=== PATIENT | male | born 1965 | race African-American/Black ===

== ENCOUNTER 2019-02-02 23:35 | Observation (INO) | payer MEDICAID ==
[~2019-02-02] VITALS: Ht 172.7 cm; Wt 73.2 kg
--- NOTE | ~2019-02-02 | HEMODYNAMI ---
PATIENT:GISSELLE BAKER MEDICAL RECORD: [id number] : 61 LOCATION:[facility].2106 ADMISSION DATE: 02/03/19 Generatedon:02/03/201916:51 Patient name: GISSELLE BAKER Patient #: [id number] SSN: : 1965 Date of study: 02/03/2019 Page: Of Hemodynamic Procedure Report Patient Data Patient Demographics Procedure consent was obtained First Name: GISSELLE Gender: Male Last Name: OLIVIA : 1965 Patient #: [id number] Age: 53 year(s) Race: Black Additional ID: [id number] Contact details [address]: [address] [place] [address] State: [place] City: [place] Zip code: [address] Past Medical History Allergies: No known allergies Admission Admission Data Admission Date: 02/03/2019 Admission Time: 1:01 Room #: 2106 Procedure Procedure Types Cath Procedure Diagnostic Procedure LHC LHC w/Coronaries Sedation Charges Moderate Sedation up to 15 minutes PCI Procedure PTCA PTCA Initial Procedure Description Procedure Date Procedure Date: 02/03/2019 Procedure Start Time: 16:21 Procedure End Time: 16:50 Procedure Staff Name Function Dandy Silva MD Performing Physician Soniya Verdin RT Monitor Finn Garvin RN Nurse Farshad Flores RT Scrub Procedure Data Cath Procedure Fluoroscopy Diagnostic fluoroscopy Total fluoroscopy Time: 8.4 time: 8.4 min min Diagnostic fluoroscopy Total fluoroscopy dose: 575 dose: 575 mGy mGy Contrast Material Contrast Material Type Amount (ml) Isovue 300 99 Entry Location Entry Primary Successful Side Size Upsize Upsize Entry Closure Succes sful Closure Location (Fr) 1 (Fr) 2 (Fr) Remarks Device Remarks Femoral Right 5 Fr 6 Fr Exoseal artery Short Estimated blood loss: 10 ml Diagnostic catheters Device Type Used For End Catheter Placement MULTIPACK JL 4.0 5Fr Left Coronary catheter Angiography MULTIPACK 3DRC 5Fr Right Coronary catheter Angiography DIAGNOSTIC IM 5Fr Internal mammary catheter ([id number]) arteriography MULTIPACK Pigtail 5 Fr LV Angiography catheter Procedure Complications No complications Procedure Medications Medication Administration Route Dosage Oxygen etCO2 Nasal cannula 2 l/min Lidocaine 2% added to field 20 Heparin Flush Bag added to field 2 bags (1000units/500ml NS) 0.9% NaCl I.V. 100 ml/hr Versed I.V. 1 mg Fentanyl I.V. 50 mcg Versed I.V. 1 mg Fentanyl I.V. 50 mcg Heparin Bolus I.V. 7500 units Plavix P.O. 300 mg Hemodynamics Rest Heart Rate: 75 (bpm) Pressure Samples Time Site Value (mmHg) Purpose Heart Use Rate(bpm) 16:30 LV 125/-1,15 EDP 81 Gradients Valve Time Site Site Mean SEP/DFP Peak To Heart Use 1 2 (mmHg) (sec/min) Peak Rate (mmHg) (bpm) Aortic 16:31 LV AO 78 Snapshots Pre Cath Intra NCS Post Cath Vital Signs Time Heart Resp SPO2 etCO2 NIBP (mmHg) Rhythm Pain Sedation Rate (ipm) (%) (mmHg) Status Level (bpm) 16:10:09 76 14 96 39.8 135/85(103) NSR 0 (11) 10(A) , No pain 16:14:29 77 12 100 39.8 130/84(111) NSR 0 (11) 10(A) , No pain 16:18:54 76 14 99 40.6 123/75(99) NSR 0 (11) 9(A) , No pain 16:23:14 77 15 98 42.8 120/80(96) NSR 0 (11) 9(A) , No pain 16:27:28 80 16 98 44.3 117/81(100) NSR 0 (11) 9(A) , No pain 16:31:46 77 17 97 44.3 120/76(96) NSR 0 (11) 9(A) , No pain 16:36:08 81 14 98 35.3 116/72(93) NSR 0 (11) 9(A) , No pain 16:40:28 79 16 98 39 119/72(94) NSR 0 (11) 9(A) , No pain 16:44:48 82 14 99 33.8 106/78(96) NSR 0 (11) 10(A) , No pain 16:49:04 78 15 98 43.6 123/74(101) NSR 0 (11) 10(A) , No pain Medications Time Medication Route Dose Verified Delivered Reason Notes Effectiveness by by 16:08:20 Oxygen etCO2 2 Dandy Buffie used for Nasal l/min Kofi Garvin RN procedure cannula 16:08:28 Lidocaine 2% added 20ml Dandy Dandy for local to vial Kofi Silva MD anesthetic field 16:08:34 Heparin Flush added 2 Dandy Dandy used for Bag to bags Kofi Silva MD procedure (1000units/500ml field NS) 16:08:44 0.9% NaCl I.V. 100 Dandy Buffie Per physician ml/hr Kofi Garvin RN 16:16:17 Versed I.V. 1 mg Dandy Buffie for sedation Kofi Garvin RN 16:16:23 Fentanyl I.V. 50 Dandy Buffie for sedation mcg Kofi Garvin RN 16:26:37 Versed I.V. 1 mg Dandy Buffie for sedation Kofi Garvin RN 16:26:41 Fentanyl I.V. 50 Dandy Buffie for sedation mcg Kofi Garvin RN 16:34:40 Heparin Bolus I.V. 7500 Dandy Buffie for verif ied units Kofi Garvin RN anticoagulation with dr silva 16:47:12 Plavix P.O. 300 Dandy Buffie for mg Kofi Garvin RN antiplatelet therapy Procedure Log Time Note 15:51:18 Time tracking: Regular hours (M-F 7:00 - 5:00) 15:51:23 Plan of Care:Hemodynamics will remain stable., Cardiac rhythm will remain stable., Comfort level will be maintained., Respiratory function will remain adequate., Patient/ family verbilizes understanding of procedure., Procedure tolerated without complication., Recovers from procedure without complications.. 15:51:27 Farshad Flores RT(R) sent for patient. Start room use. 16:01:11 Patient received from PCU to CCL 3 Alert and oriented. Tansferred to table in Supine position. 16:01:12 Warm blankets applied, and pérez hugger turned on for patient comfort. 16:01:12 Correct patient and procedure confirmed by team. 16:01:14 Signed procedure consent form obtained from patient. 16:01:15 ECG and BP/O2 sat monitors applied to patient. 16:01:31 Full Disclosure recording started 16:08:20 Oxygen 2 l/min etCO2 Nasal cannula was administered by Finn Garvin RN; used for procedure; 16:08:28 Lidocaine 2% 20ml vial added to field was administered by Dandy Silva MD; for local anesthetic; 16:08:34 Heparin Flush Bag (1000units/500ml NS) 2 bags added to field was administered by Dandy Silva MD; used for procedure; 16:08:44 0.9% NaCl 100 ml/hr I.V. was administered by Finn Garvin RN; Per physician; 16:08:50 Vital chart was started 16:11:26 Baseline sample Acquired. 16:11:29 Rhythm: sinus rhythm 16:11:47 H&P Date Dictated: 02/03/2019 Within 30 days and on chart.. 16:11:48 Pre-procedure instructions explained to patient. 16:11:48 Pre-op teaching completed and patient verbalized understanding. 16:11:50 Family in patients room. 16:11:52 Patient NPO since Midnight. 16:12:06 Patient allergic to No known allergies 16:12:08 Is the patient allergic to Iodine/contrast media? No. 16:12:11 Is patient on blood thinner?No 16:12:19 Patient diabetic? No. 16:12:22 Previous problem with sedation/anesthesia? No ? 16:12:23 Snore? Yes 16:12:23 Sleep apnea? No 16:12:24 Deviated septum? No 16:12:25 Opens mouth fully? Yes 16:12:26 Sticks out tongue? Yes 16:12:29 Airway obstruction? No ? 16:12:31 Dentures? No ? 16:12:34 Pre procedure: right dorsailis pedis pulse 2+ Normal; easily identifiable; not easily obliterated 16:12:36 Patient pain scale 0/10 ?. 16:12:42 IV patent on arrival in left forearm with 0.9% NaCl at [facility]. 16:12:45 Lab results completed and on chart. 16:12:49 Right groin area was prepped with chlora-prep and draped in sterile fashion 16:12:49 Alarms reviewed by R. N. 16:12:50 Sharps counted by scrub and verified by R.N. 16:12:54 Use device set Femoral Dx 16:12:54 ACIST Syringe (89324) opened to sterile field. 16:12:55 Bag Decanter (2002S) opened to sterile field. 16:12:55 Medline Cath Pack ([id number]) opened to sterile field. 16:12:56 DIAGNOSTIC WIRE .035 260cm J wire (209716) opened to sterile field. 16:12:57 ACIST Hand Control (36764) opened to sterile field. 16:12:57 ACIST Manifold (41906) opened to sterile field. 16:12:58 DIAGNOSTIC Multipack 5Fr catheter set ([id number]) opened to sterile field. 16:12:58 Tegaderm 4 x 4 (1626W) opened to sterile field. 16:12:59 SHEATH 5FR [place] (EFP399) opened to sterile field. 16:15:37 Final Timeout: patient, procedure, and site verified with staff and physician. All members of the team are in agreement. 16:15:39 Right groin site verified by team. 16:15:44 Maximum allowable Isovue 300 dose 300ml. Physician notified. (300ml for normal creatinines. For patients with creatinine of 1.7 or higher multiply weight(kg) x 5 divided by creatinine.) 16:15:48 Fire Safety Assessment: A--An alcohol-based skin anteseptic being used preoperatively., C--Open oxygen or nitrous oxide is being used., D--An ESU, laser, or fiber-optic light is being used. 16:15:51 Physical assessment completed. ASA score P 2 - A patient with mild systemic disease as per Dandy Silva MD. 16:15:54 Sedation plan: IV Moderate Sedation Medication:Versed, Fentanyl 16:16:17 Versed 1 mg I.V. was administered by Finn Garvin RN; for sedation; 16:16:23 Fentanyl 50 mcg I.V. was administered by Finn Garvin RN; for sedation; 16:20:28 Procedure started. 16:21:04 Zero performed for pressure channel P1 16:21:09 Local anesthetic to right femoral artery with Lidocaine 2% by Dandy Silva MD.INITIAL ACCESS ONLY 16:24:14 A 5 Fr sheath was inserted into the Right Femoral artery 16:25:18 A MULTIPACK JL 4.0 5Fr catheter was advanced over the wire and used for Left Coronary Angiography. 16:26:20 Catheter removed. 16:26:35 A MULTIPACK 3DRC 5Fr catheter was advanced over the wire and used for Right Coronary Angiography. 16:26:37 Versed 1 mg I.V. was administered by Finn Garvin RN; for sedation; 16::41 Fentanyl 50 mcg I.V. was administered by Finn Garvin RN; for sedation; 16:27:53 Catheter removed. 16:29:23 A DIAGNOSTIC IM 5Fr catheter ([id number]) was advanced over the wire and used for Internal mammary arteriography. 16:29:27 Catheter removed. 16:29:37 A MULTIPACK Pigtail 5 Fr catheter was advanced over the wire and used for LV Angiography. 16:30:41 LV gram done using REYES 16:30:43 LV hemodynamics recorded. 16:30:52 Injector settings: Ml/sec: 10, Volume: 20, 16:31:02 EF : 35 % 16:31: Catheter removed. 16:31:34 Use device set KOFI PCI 16:31:35 SHEATH 6FR [place] (DIK563) opened to sterile field. 16:31:37 TUBING High Pressure Extension Tubing (Kofi) ([id number]) opened to sterile field. 16:31:38 INFLATOR Merit BasixCompak (LS2563) opened to sterile field. 16:31:39 BMW 300cm [place] 2 J wire ([id number]) opened to sterile field. 16:31:44 GUIDE 6FR XBLAD 3.5 catheter ([id number]) opened to sterile field. 16:31:53 Sheath upsized to a 6 Fr Short. 16:34:40 Heparin Bolus 7500 units I.V. was administered by Finn Garvin RN; for anticoagulation; verified with dr silva 16:35:49 6 Fr XBLAD 3.5 guide catheter was inserted over the wire 16:36:37 BMW wire advanced. 16:38:53 Inflate balloon Inflation number: 1 A EMERGE OTW 3.0 x 20 balloon ([id number]) was prepped and advanced across the Prox CX, then inflated to 12 CHLOE for 0:27 (min:sec). 16:39:26 Inflation number: 2 The EMERGE OTW 3.0 x 20 balloon ([id number]) was reinflated across the Prox CX, to 8 CHLOE for 0:15 (min:sec). 16:39:43 Inflation number: 3 The EMERGE OTW 3.0 x 20 balloon ([id number]) was reinflated across the Prox CX, to 8 CHLOE for 0:04 (min:sec). 16:40:49 Inflation number: 4 The EMERGE OTW 3.0 x 20 balloon ([id number]) was reinflated across the Prox CX, to 5 CHLOE for 0:33 (min:sec). 16:41:14 Inflation number: 5 The EMERGE OTW 3.0 x 20 balloon ([id number]) was reinflated across the Prox CX, to 6 CHLOE for 0:06 (min:sec). 16:45:06 Inflation number: 6 The EMERGE OTW 3.0 x 20 balloon ([id number]) was reinflated across the Prox CX, to 12 CHLOE for 0:10 (min:sec). 16:45:37 Balloon removed over the wire. 16:45:37 Wire removed. 16:45:38 Guide catheter removed. 16:45:46 Sheath removed intact; hemostasis achieved with Exoseal to the Right Femoral artery. 16:45:48 Procedure ended.(Physican Out) 16:45:50 EXOSEAL 6Fr (EX600) opened to sterile field. 16:46:11 Fluoroscopy time 08.40 minutes. 16:46:16 Fluoroscopy dose: 575 mGy 16:46:16 Flurop Dose total: 575 16:46:26 Contrast amount:Isovue 300 99ml. 16:46:28 Sharps counted by scrub and verified by R.N. 16:46:29 Insertion/operative site no bleeding no hematoma. 16:46:32 Post-op/insertion site Right Femoral artery dressed using a 4 x 4 and Tegaderm. 16:46:36 Post right femoral artery:stable, clean and dry 16:46:38 Post Procedure Pulses reassessed and unchanged 16:46:40 Post-procedure physical assessment completed. ASA score P 2 - A patient with mild systemic disease as per Dandy Silva MD. 16:46:43 Post procedure rhythm: unchanged. 16:46:48 Estimated blood loss: 10 ml 16:46:50 Post procedure instruction explained to patient.Patient verbalizes understanding. 16:46:50 Patient needs reinforcement of post procedure teaching. 16:47:12 Plavix 300 mg P.O. was administered by Finn Garvin RN; for antiplatelet therapy; 16:47:18 Procedure type changed to Cath procedure, Diagnostic procedure, LHC, LHC w/Coronaries, Sedation Charges, Moderate Sedation up to 15 minutes, PCI procedure, PTCA, PTCA Initial 16:47:23 Procedure Complication : No complications 16:47:28 Report given to PCU. 16:48:38 See physician's report for complete and final results. 16:48:57 Procedure and supply charges have been captured, reviewed, submitted and are correct. 16:50:45 Patient transfered to PCU with Bed. 16:50:52 Vital chart was stopped 16:50:54 Procedure ended. 16:50:54 Full Disclosure recording stopped 16:50:59 End room use (Document Last) Intervention Summary Intervention Notes Time ActionType Lesion and Equipment Action# Pressure Duration Attributes Used 16:38:53 Inflate Prox CX EMERGE OTW 1 12 00:27 balloon 3.0 x 20 balloon ([id number]) 16:39:26 Reinflate Prox CX EMERGE OTW 2 8 00:15 balloon 3.0 x 20 balloon ([id number]) 16:39:43 Reinflate Prox CX EMERGE OTW 3 8 00:05 balloon 3.0 x 20 balloon ([id number]) 16:40:49 Reinflate Prox CX EMERGE OTW 4 5 00:33 balloon 3.0 x 20 balloon ([id number]) 16:41:14 Reinflate Prox CX EMERGE OTW 5 6 00:06 balloon 3.0 x 20 balloon ([id number]) 16:45:06 Reinflate Prox CX EMERGE OTW 6 12 00:10 balloon 3.0 x 20 balloon ([id number]) Device Usage Item Name Manufacture Quantity Catalog Number Hospital Part Current Mini mal Lot# / Charge Number Stock Stock Serial# Code ACIST Acist 1 96394 208536 570263 852873 20 Syringe Peaberry Software (31386) Systems Inc Bag Decanter Microtek 1 666464 95743 216429 5 () Medical Inc. Medline Cath Medline 1 [id number] 594631 98309 993661 5 Pack ([id number]) DIAGNOSTIC St Dionte 1 462408 353391 195221 469237 30 WIRE .035 260cm J wire (284522) ACIST Hand Acist 1 48963 189462 321813 940837 5 Control Medical (66449) Systems Inc ACIST Acist 1 55158 647418 010335 548737 5 Manifold Medical (53979) Systems Inc DIAGNOSTIC Cardinal 1 ZW9720 110310 46620 209158 30 Multipack Health 5Fr catheter set (IM6589) Tegaderm 4 x 3M 1 1626W 100770 239245 056943 5 4 (1626W) SHEATH 5FR Terumo 1 QBA792 961503 637727 591722 5 [place] (SMA845) MULTIPACK JL Cardinal 1 254931 5 4.0 5Fr Health catheter MULTIPACK Cardinal 1 707075 5 3DRC 5Fr Health catheter DIAGNOSTIC Cardinal 1 745047Y 589605 189949 038391 5 IM 5Fr Health catheter (144021S) MULTIPACK Cardinal 1 751781 5 Pigtail 5 Fr Health catheter SHEATH 6FR Terumo 1 GPW348 646563 119346 873312 40 [place] (ZJE684) TUBING High Merit 1 PM3313R 574372 32275 915840 10 Pressure Medical Extension Tubing (Silva) (BQ0199D) INFLATOR Merit 1 PM8540 685719 671063 304306 15 Merit Medical BasixCompak (QF8751) BMW 300cm Stark 1 [id number] 641335 876013 870242 5 [place] 2 Vascular J wire (6860352F) GUIDE 6FR Cardinal 1 98635457 461426 846451 377436 10 XBLAD 3.5 Health catheter (44204424) EMERGE OTW Crowley 1 [id number] 104722 102181 920262 5 [id number] 3.0 x 20 Scientific balloon ([id number]) EXOSEAL 6Fr Cardinal 1 EX600 463879 651063 622098 10 (EX600) Health Signature Audit [place] Stage Time Signature Unsigned Intra-Procedure 02/03/2019 Soniya 4:51:13 PM Counts RT(R) Signatures Monitor : Soniya Signature : Counts RT Date : Time : [facility] [address] [place] [address]
[2019-02-02] MEDS ORDERED: BAYER CHEWABLE81 MG PO (23:40)
[2019-02-02] MEDS ORDERED: PLAVIX75 MG PO (23:40)
[2019-02-03 00:12] LABS: HEMATOCRIT 43.9 % (42.0-54.0); HEMOGLOBIN 15.3 g/dL (13.5-17.5); MCH 31.6 pg (26.0-34.0); MCHC 34.9 g/dL (31.0-37.0); MCV 90.7 fL (80.0-100.0); MEAN PLATELET VOLUME 10.1 fL (7.4-10.4); NEUTROPHILS 51.9 % (40-80); PLATELET COUNT 217 10x3/uL (130-400); RBC 4.84 10x6/uL (4.20-6.10); RDW 14.9 % (11.5-14.5); WBC 8.6 10x3/uL (4.8-10.8)
[2019-02-03 00:20] LABS: APTT 31.6 SECONDS (22.8-39.4); INR 1.02 (0.85-1.17); PROTIME 12.9 SECONDS (11.6-15.0)
[2019-02-03 00:24] LABS: ALBUMIN 3.2 g/dL (3.4-5.0); ALKALINE PHOSPHATASE 118 U/L (46-116); ALT (SGPT) 22 U/L (10-68); BILIRUBIN - TOTAL 0.22 mg/dL (0.2-1.3); CALC OSMOLALITY 283 mosm/kg (275-300); CALCIUM 8.7 mg/dL (8.5-10.1); CHLORIDE - SERUM 104 mmol/L (98-107); CREATININE - SERUM 1.3 mg/dL (0.6-1.3); GLUCOSE 111 mg/dL (74-106); POTASSIUM - SERUM 3.7 mmol/L (3.5-5.1); PROTEIN - SERUM 7.5 g/dL (6.4-8.2); SODIUM 141 mmol/L (136-145); UREA NITROGEN 17 mg/dL (7-18); eGFR NON AFRICAN AMERICAN 61 mL/min (90-120)
[2019-02-03 00:38] LABS: CKMB 0.9 U/L (0.0-3.6); CREATINE KINASE 74 UL (21-232); MAGNESIUM - SERUM 1.9 mg/dL (1.8-2.4)
[2019-02-03 00:48] LABS: TROPONIN-I 0.098 ng/mL (0.000-0.060)
[2019-02-03 02:38] VITALS: BP 112/55; BMI 24.5
[2019-02-03 04:00] VITALS: BP 112/55
[2019-02-03 09:23] VITALS: BP 121/66
[2019-02-03 09:43] LABS: BASOPHILS 0.4 % (0-2); EOSINOPHILS 6.3 % (0-7); HEMATOCRIT 42.3 % (42.0-54.0); HEMOGLOBIN 14.7 g/dL (13.5-17.5); IMMATURE GRANULOCYTES 0.1 % (0-5); LYMPHOCYTES 38.8 % (15-50); MCH 31.3 pg (26.0-34.0); MCHC 34.8 g/dL (31.0-37.0); MCV 90.2 fL (80.0-100.0); MEAN PLATELET VOLUME 10.7 fL (7.4-10.4); MONOCYTES 6.6 % (2-11); NEUTROPHILS 47.8 % (40-80); PLATELET COUNT 244 10x3/uL (130-400); RBC 4.69 10x6/uL (4.20-6.10); RDW 14.4 % (11.5-14.5); WBC 7.9 10x3/uL (4.8-10.8)
[2019-02-03 09:55] LABS: CALC OSMOLALITY 280 mosm/kg (275-300); CALCIUM 8.5 mg/dL (8.5-10.1); CARBON DIOXIDE 29.4 mmol/L (21.0-32.0); CHLORIDE - SERUM 104 mmol/L (98-107); GLUCOSE 133 mg/dL (74-106); POTASSIUM - SERUM 3.8 mmol/L (3.5-5.1); SODIUM 140 mmol/L (136-145); UREA NITROGEN 13 mg/dL (7-18); eGFR NON AFRICAN AMERICAN 82 mL/min (90-120)
[2019-02-03 12:17] VITALS: Ht 172.7 cm; Wt 73.2 kg
[2019-02-03 13:01] VITALS: BP 124/71
[2019-02-03 20:30] VITALS: BP 132/76
[2019-02-04 00:32] VITALS: BP 128/74
[2019-02-04 04:39] VITALS: BP 112/61
[2019-02-04 05:56] LABS: BASOPHILS 0.3 % (0-2); EOSINOPHILS 5.6 % (0-7); HEMATOCRIT 44.2 % (42.0-54.0); HEMOGLOBIN 15.4 g/dL (13.5-17.5); LYMPHOCYTES 30.2 % (15-50); MCH 31.4 pg (26.0-34.0); MCHC 34.8 g/dL (31.0-37.0); MCV 90.2 fL (80.0-100.0); MEAN PLATELET VOLUME 11.1 fL (7.4-10.4); MONOCYTES 9.1 % (2-11); NEUTROPHILS 54.8 % (40-80); PLATELET COUNT 238 10x3/uL (130-400); RDW 14.5 % (11.5-14.5); WBC 6.8 10x3/uL (4.8-10.8)
[2019-02-04 06:20] LABS: CALC OSMOLALITY 276 mosm/kg (275-300); CALCIUM 8.4 mg/dL (8.5-10.1); CARBON DIOXIDE 29.1 mmol/L (21.0-32.0); CHLORIDE - SERUM 105 mmol/L (98-107); CREATININE - SERUM 0.8 mg/dL (0.6-1.3); GLUCOSE 76 mg/dL (74-106); POTASSIUM - SERUM 4.2 mmol/L (3.5-5.1); SODIUM 140 mmol/L (136-145); UREA NITROGEN 11 mg/dL (7-18); eGFR NON AFRICAN AMERICAN > 90 mL/min (90-120)
[2019-02-04 09:37] VITALS: BP 127/81
[2019-02-04 12:27] VITALS: BP 118/88
== END 2019-02-04 16:56 | disposition home or self-care (01) ==
LOC: D.ER 23:35 → D.M2 02-03 01:01 → OBSVTIME 02-03 01:01 → D.EDHOLD 02-03 01:01 → D.M2 02-03 01:26
PROVIDERS: Family Medicine; ADMIT Internal Medicine Cardiovascular Disease; ATTEND Internal Medicine Cardiovascular Disease
DX: I25.110 Atherosclerotic heart disease of native coronary artery with unstable angina pectoris (principal); T82.855A Stenosis of coronary artery stent, initial encounter; Y83.8 Other surgical procedures as the cause of abnormal reaction of the patient, or of later complication, without mention of misadventure at the time of the procedure

== ENCOUNTER 2019-02-23 22:26 | Observation (INO) | payer MEDICAID ==
[~2019-02-23] VITALS: Ht 172.7 cm; Wt 72.1 kg
--- NOTE | ~2019-02-23 | HP ---
PATIENT: GISSELLE BAKER MEDICAL RECORD: [id number] ACCOUNT: [id number] LOCATION:[facility] D.2309 : 61 ADMISSION DATE: 02/24/19 PCP: No PCP HISTORY AND PHYSICAL EXAMINATION ADMITTING DIAGNOSES: 1. Unstable angina. 2. Coronary artery disease. 3. Status post previous percutaneous transluminal coronary angioplasty stent. 4. Previous bypass surgery. HISTORY OF PRESENT ILLNESS: Mr. Thompson presents with increasing anginal symptomatology. Actually, he presented earlier this month with anginal symptomatology, underwent cardiac catheterization. Review of the cath film reveals in-stent restenosis of the circumflex, wide patency of the LAD, disease of the RCA as well. His chest pain has continued and has worsened. PHYSICAL EXAMINATION: GENERAL APPEARANCE: Well-nourished, well-developed, appears stated age. Level of distress, comfortable. PSYCHIATRIC: Mental status, alert, normal affect. Orientation, oriented to time, place and person. EYES: Lids and conjunctiva, noninjected. No discharge, no pallor. ENT: Lips, teeth, gums, normal dentition. Oropharynx, no cyanosis, no pallor. NECK: Carotid arteries, bilateral normal upstroke, no bruits, no thrills. JUGULAR VEINS: No jugular venous pressure or distention. CERVICAL LYMPH NODES: Nontender, nonenlarged. THYROID: Not enlarged. Nontender. No nodules. LUNGS: Respiratory effort, unlabored. CHEST: Normal curvature. No thoracic deformity. No chest wall tenderness. Percussion, resonant. Auscultation, clear. No wheezes, no rales, no rhonchi. CARDIOVASCULAR: Precordial exam, nondisplaced. No heaves or pericardial thrills. Rate and rhythm, regular. Heart sounds, normal S1, normal S2. No S3, no gallop, no rub. Systolic murmur, not heard. Diastolic murmur, not heard. EXTREMITIES: No cyanosis, no edema. Peripheral pulses, full and equal in all extremities, except as noted. No bruits appreciated. ABDOMEN: Soft, nondistended. Normal aorta. No bruit. Nontender. No masses. Liver, nontender, no hepatomegaly. Spleen, nontender, no splenomegaly. MUSCULOSKELETAL: No joint tenderness. No joint swelling. No erythema. NEUROLOGICAL: Normal gait, normal strength, normal tone. SKIN: Warm and dry. OVERALL IMPRESSION: Anginal symptomatology. We will proceed with transcatheter revascularization of the circumflex and right coronary artery. TRANSINT:[id number] Voice Confirmation ID: [id number] DOCUMENT ID: [id number] HISTORY AND PHYSICAL [id number] GISSELLE BAKER JEFFREY MD CC: [id number] DICTATION DATE: 02/24/19 0456 FOOD AIDE: 02/24/19 0505 ADM IN [facility] [address] [place] [address]
--- NOTE | ~2019-02-23 | HEMODYNAMI ---
PATIENT:GISSELLE BAKER MEDICAL RECORD: [id number] : 61 LOCATION:[facility] D.2309 ADMISSION DATE: 02/24/19 Generatedon:02/24/201911:37 Patient name: GISSELLE BAKER Patient #: [id number] SSN: : 1965 Date of study: 02/24/2019 Page: Of Hemodynamic Procedure Report Patient Data Patient Demographics Procedure consent was obtained First Name: GISSELLE Gender: Male Last Name: OLIVIA : 1965 Patient #: [id number] Age: 53 year(s) Race: Black Additional ID: [id number] Contact details [address]: [address] [place] [address] State: [place] City: [place] Zip code: [address] Past Medical History Allergies: No known allergies Admission Admission Data Admission Date: 02/24/2019 Admission Time: 1:34 Admit Source: Other Room #: D2309 Procedure Procedure Types Cath Procedure Diagnostic Procedure LHC LHC w/Coronaries w/Grafts FFR/IVUS Intra-Coronary IVUS Initial Sedation Charges Moderate Sedation up to 15 minutes PCI Procedure Coronary Stent Coronary Stent Initial x2 Procedure Description Procedure Date Procedure Date: 02/24/2019 Procedure Start Time: 11:18 Procedure End Time: 11:34 Procedure Staff Name Function Garry Valencia MD Performing Physician Tyron Sahu RT Monitor Mar Segovia RT Scrub Oscar Sinha RN Nurse Procedure Data Cath Procedure Fluoroscopy Diagnostic fluoroscopy Total fluoroscopy Time: 4.3 time: 4.3 min min Diagnostic fluoroscopy Total fluoroscopy dose: dose: 226.46 mGy 226.46 mGy Contrast Material Contrast Material Type Amount (ml) Isovue 300 85 Entry Location Entry Primary Successful Side Size Upsize Upsize Entry Closure Succes sful Closure Location (Fr) 1 (Fr) 2 (Fr) Remarks Device Remarks Femoral Left 6 Fr Exoseal artery Short Estimated blood loss: 10 ml Diagnostic catheters Device Type Used For End Catheter Placement MULTIPACK Pigtail 5 Fr Procedure catheter MULTIPACK 3DRC 5Fr Procedure catheter MULTIPACK JL 4.0 5Fr Procedure catheter Procedure Complications No complications Procedure Medications Medication Administration Route Dosage Oxygen NC 2 l/min Heparin Flush Bag added to field 2 bags (1000units/500ml NS) 0.9% NaCl I.V. 100 ml/hr Lidocaine 2% added to field 20 Fentanyl I.V. 50 mcg Versed I.V. 1 mg Fentanyl I.V. 50 mcg Versed I.V. 1 mg Heparin Bolus I.V. 4000 units Integrilin (Bolus I.V. 6.8 ml 2mg/ml) Integrilin (Bolus wasted 3.2 ml 2mg/ml) Hemodynamics Rest Heart Rate: 85 (bpm) Pressure Samples Time Site Value (mmHg) Purpose Heart Use Rate(bpm) 11:19 LV 80/10,10 Snapshot 82 Gradients Valve Time Site Site Mean SEP/DFP Peak To Heart Use 1 2 (mmHg) (sec/min) Peak Rate (mmHg) (bpm) Aortic 11:19 LV AO 84 Snapshots Pre Cath Intra NCS Post Cath Vital Signs Time Heart Resp SPO2 etCO2 NIBP Rhythm Pain Sedation Rate (ipm) (%) (mmHg) (mmHg) Status Level (bpm) 11:04:32 81 17 100 0 120/75(96) NSR 0 (11) 10(A) , No pain 11:08:44 81 17 99 0 111/64(79) NSR 0 (11) 10(A) , No pain 11:12:54 85 17 99 0 100/60(78) NSR 0 (11) 10(A) , No pain 11:17:00 82 16 99 0 110/57(83) NSR 0 (11) 9(A) , No pain 11:21:08 82 16 99 0 106/62(81) NSR 0 (11) 9(A) , No pain 11:25:11 82 17 99 0 114/72(89) NSR 0 (11) 9(A) , No pain 11:29:19 89 17 99 0 113/64(78) NSR 0 (11) 9(A) , No pain 11:33:27 85 17 99 0 103/64(83) NSR 0 (11) 9(A) , No pain Medications Time Medication Route Dose Verified Delivered Reason Notes Effectiveness by by 11:03:51 Oxygen NC 2 Garry Moore Per physician l/min Erik Sinha RN 11:03:58 Heparin Flush added 2 Garry Frenchy used for Bag to bags Erik Sinha RN procedure (1000units/500ml field NS) 11:04:08 0.9% NaCl I.V. 100 Garry Frenchy Per physician ml/hr Erik Sinha RN 11:04:16 Lidocaine 2% added 20ml Garry Moore for local to vial Erik Sinha RN anesthetic field 11:16:53 Fentanyl I.V. 50 Garry Frenchy for sedation mcg Erik Sinha RN 11:16:59 Versed I.V. 1 mg Garry Frenchy for sedation Erik Sinha RN 11:19:13 Fentanyl I.V. 50 Garry Frenchy for sedation mcg Erik Sinha RN 11:19:18 Versed I.V. 1 mg Garry Frenchy for sedation Erik Sinha RN 11:25:02 Heparin Bolus I.V. 4000 Garry Moore for units Erik Sinha RN anticoagulation 11:25:21 Integrilin I.V. 6.8 Garry Moore for (Bolus 2mg/ml) ml Erik Sinha RN antiplatelet therapy 11:34:00 Integrilin wasted 3.2 Garry Moore for (Bolus 2mg/ml) ml Erik Sinha RN antiplatelet therapy Procedure Log Time Note 10:40:06 Oscar Sinha RN sent for patient. Start room use. 10:44:16 Informed consent obtained and on chart 10:44:20 Admit Source: Other 10:44:49 Diagnostic Cath status Elective 10:44:50 Time tracking: Regular hours (M-F 7:00 - 5:00) 10:44:58 Plan of Care:Hemodynamics will remain stable., Cardiac rhythm will remain stable., Comfort level will be maintained., Respiratory function will remain adequate., Patient/ family verbilizes understanding of procedure., Procedure tolerated without complication., Recovers from procedure without complications.. 10:48:45 Lab Result : Hemoglobin 15.3 g/dl 10:48:45 Lab Result : BUN 18 mg/dl 10:48:45 Lab Result : Creatinine 1 mg/dl 10:48:45 Lab Result : Hematocrit 42.6 % 10:48:55 H&P Date Dictated: 02/23/2019 Within 30 days and on chart.. 10:57:01 Patient received from ICU to CCL 3 Alert and oriented. Tansferred to table in Supine position. 10:57:06 Warm blankets applied, and pérez hugger turned on for patient comfort. 10:57:06 Correct patient and procedure confirmed by team. 10:57:07 ECG and BP/O2 sat monitors applied to patient. 11:03:30 Vital chart was started 11:03:51 Oxygen 2 l/min NC was administered by Oscar Sinha RN; Per physician; 11:03:58 Heparin Flush Bag (1000units/500ml NS) 2 bags added to field was administered by Oscar Sinha RN; used for procedure; 11:04:08 0.9% NaCl 100 ml/hr I.V. was administered by Oscar Sinha RN; Per physician; 11:04:16 Lidocaine 2% 20ml vial added to field was administered by Oscar Sinha RN; for local anesthetic; 11:08:13 Baseline sample Acquired. 11:08:17 Rhythm: sinus rhythm 11:08:18 Full Disclosure recording started 11:08:19 Pre-procedure instructions explained to patient. 11:08:20 Pre-op teaching completed and patient verbalized understanding. 11:08:22 Family unavailable. 11:08:23 Patient NPO since Midnight. 11:08:28 Patient allergic to No known allergies 11:08:29 Is the patient allergic to Iodine/contrast media? No. 11:08:31 Is patient on blood thinner?No 11:08:32 Patient diabetic? No. 11:08:35 Snore? Yes 11:08:35 Previous problem with sedation/anesthesia? No ? 11:08:37 Deviated septum? No 11:08:37 Sleep apnea? No 11:08:38 Opens mouth fully? Yes 11:08:39 Sticks out tongue? Yes 11:08:41 Airway obstruction? No ? 11:08:42 Dentures? No ? 11:08:45 Pre procedure: left dorsailis pedis pulse 2+ Normal; easily identifiable; not easily obliterated 11:08:47 Patient pain scale 0/10 ?. 11:08:54 IV patent on arrival in right wrist with 0.9% NaCl at O. 11:08:56 Lab results completed and on chart. 11:08:59 Left groin area was prepped with chlora-prep and draped in sterile fashion 11:09:00 Sharps counted by scrub and verified by R.N. 11:09:00 Alarms reviewed by R. N. 11:09:04 Use device set Femoral Dx 11:09:07 ACIST Syringe (43701) opened to sterile field. 11:09:08 ACIST Syringe (42234) opened to sterile field. 11:09:09 Medline Cath Pack ([id number]) opened to sterile field. 11:09:09 Bag Decanter (2002S) opened to sterile field. 11:09:12 DIAGNOSTIC Multipack 5Fr catheter set ([id number]) opened to sterile field. 11:09:14 ACIST Hand Control (06048) opened to sterile field. 11:09:15 Tegaderm 4 x 4 (1626W) opened to sterile field. 11:09:15 ACIST Manifold (45570) opened to sterile field. 11:09:18 DIAGNOSTIC WIRE .035 260cm J wire (677172) opened to sterile field. 11::27 --------ALL STOP TIME OUT------ 11::27 Physician arrived 11::28 Final Timeout: patient, procedure, and site verified with staff and physician. All members of the team are in agreement. 11:09:29 Left groin site verified by team. 11:09:33 Maximum allowable Isovue 300 dose 300ml. Physician notified. (300ml for normal creatinines. For patients with creatinine of 1.7 or higher multiply weight(kg) x 5 divided by creatinine.) 11:09:37 Fire Safety Assessment: A--An alcohol-based skin anteseptic being used preoperatively., C--Open oxygen or nitrous oxide is being used., D--An ESU, laser, or fiber-optic light is being used. 11:09:40 Physical assessment completed. ASA score P 2 - A patient with mild systemic disease as per Garry Valencia MD. 11:09:43 Sedation plan: IV Moderate Sedation Medication:Versed, Fentanyl 11:16:53 Fentanyl 50 mcg I.V. was administered by Oscar Sinha RN; for sedation; 11:16:59 Versed 1 mg I.V. was administered by Oscar Sinha RN; for sedation; 11:18:25 Procedure started. 11:18:30 Local anesthetic to left femerol artery with Lidocaine 2% by Garry Valencia MD.INITIAL ACCESS ONLY 11:18:39 A 6 Fr Short sheath was inserted into the Left Femoral artery 11:18:57 SHEATH 6FR [place] ([id number]) opened to sterile field. 11:19:11 A MULTIPACK Pigtail 5 Fr catheter was advanced over the wire and used for Procedure. 11:19:13 Fentanyl 50 mcg I.V. was administered by Oscar Sinha RN; for sedation; 11:19:18 Versed 1 mg I.V. was administered by Oscar Sinha RN; for sedation; 11:19:34 LV gram done using REYES 11:19:36 Injector settings: Ml/sec: 10, Volume: 20, 11:19:38 LV hemodynamics recorded. 11:19:42 EF : 60 % 11:19:47 Catheter exchanged over wire. 11:19:54 Zero performed for pressure channel P1 11:20:57 A MULTIPACK 3DRC 5Fr catheter was advanced over the wire and used for Procedure. 11:21:22 CARPENTER to LAD angiography performed. 11:21:29 RCA angiography performed. 11:21:31 Catheter exchanged over wire. 11:21:40 A MULTIPACK JL 4.0 5Fr catheter was advanced over the wire and used for Procedure. 11:21:49 INFLATOR Merit BasixCompak (FP5398) opened to sterile field. 11:21:49 CHOICE PT Extra Support 182cm wire ([id number]) opened to sterile field. 11:22:04 LCA angiography performed. 11:22:06 Catheter exchanged over wire. 11:22:12 GUIDE 6FR XBLAD 3.5 catheter ([id number]) opened to sterile field. 11:22:22 6 Fr xblad 3.5 guide catheter was inserted over the wire 11:22:33 choice pt es wire advanced. 11:23:18 Wire advanced across lesion. 11:23:46 [place] Eag[place]e IVUS Catheter (42368P) opened to sterile field. 11:23:46 IVUS catheter advanced over wire. 11:25:02 Heparin Bolus 4000 units I.V. was administered by Oscar Sinha RN; for anticoagulation; 11:25:18 IVUS pass to Circ lesion performed. 11:25:19 IVUS catheter removed over wire. 11:25:21 Integrilin (Bolus 2mg/ml) 6.8 ml I.V. was administered by Oscar Sinha RN; for antiplatelet therapy; 11::42 Place stent Inflation Number: 1 A INTEGRITY RX 3.5 x 26 stent ([id number]) was prepped and advanced across the Prox CX. The stent was deployed at 19 CHLOE for 0:10 (min:sec). 11:27:00 Stent catheter was removed intact over wire. 11:27:00 Wire removed. 11:27:01 Guide catheter removed. 11:27:06 GUIDE 6FR AR 1.0 catheter ([id number]) opened to sterile field. 11:27:12 6 Fr ar 1 guide catheter was inserted over the wire 11:28:14 choice pt es wire advanced. 11:28:15 Wire advanced across lesion. 11:31:16 Place stent Inflation Number: 1 A INTEGRITY RX 3.0 x 30 stent ([id number]) was prepped and advanced across the Prox RCA. The stent was deployed at 13 CHLOE for 0:10 (min:sec). 11:32:30 Stent catheter was removed intact over wire. 11:32:31 Wire removed. 11:32:31 Guide catheter removed. 11:32:37 EXOSEAL 6Fr (EX600) opened to sterile field. 11:32:46 Sheath removed intact; hemostasis achieved with Exoseal to the Left Femoral artery. 11:32:47 Procedure ended.(Physican Out) 11:33:24 Fluoroscopy time 04.30 minutes. 11:33:29 Fluoroscopy dose: 226.46 mGy 11:33:29 Flurop Dose total: 226.46 11:33:34 Contrast amount:Isovue 300 85ml. 11:33:38 Sharps counted by scrub and verified by R.N. 11:33:38 Insertion/operative site no bleeding no hematoma. 11:33:41 Post-op/insertion site Left Femoral artery dressed using a 4 x 4 and Tegaderm. 11:33:45 Post left femerol artery:stable, soft, clean and dry 11:33:46 Post Procedure Pulses reassessed and unchanged 11:33:48 Post-procedure physical assessment completed. ASA score P 2 - A patient with mild systemic disease as per Garry Valencia MD. 11:33:50 Post procedure rhythm: unchanged. 11:33:52 Estimated blood loss: 10 ml 11:33:53 Post procedure instruction explained to patient.Patient verbalizes understanding. 11:33:53 Patient needs reinforcement of post procedure teaching. 11:34:00 Integrilin (Bolus 2mg/ml) 3.2 ml wasted was administered by Oscar Sinha RN; for antiplatelet therapy; 11:34:17 Procedure type changed to Cath procedure, Diagnostic procedure, LHC, LHC w/Coronaries w/Grafts, FFR/IVUS, Intra-Coronary IVUS Initial, Sedation Charges, Moderate Sedation up to 15 minutes, PCI procedure, Coronary Stent, Coronary Stent Initial x2 11:34:42 Procedure and supply charges have been captured, reviewed, submitted and are correct. 11:34:44 Procedure Complication : No complications 11:34:46 Vital chart was stopped 11:34:46 See physician's report for complete and final results. 11:34:48 Report given to Pre/Post Procedure Room. 11:34:50 Patient transfered to Pre/Post Procedure Room with Stretcher. 11:34:52 Procedure ended. 11:34:52 Full Disclosure recording stopped 11:34:56 End room use (Document Last) Intervention Summary Intervention Notes Time ActionType Lesion and Equipment Action# Pressure Duration Attributes Used 11:26:42 Place stent Prox CX INTEGRITY RX 1 19 00:10 3.5 x 26 stent ([id number]) 11:31:16 Place stent Prox RCA INTEGRITY RX 1 13 00:10 3.0 x 30 stent ([id number]) Device Usage Item Name Manufacture Quantity Catalog Number Hospital Part Current [facility] Health Lot# / Charge Number Stock Stock Serial# Code ACIST Acist 2 26573 990634 194495 378802 20 Syringe Medical (72904) Systems Inc Bag Decanter Microtek 1 2001S 453346 34016 039211 5 () Medical Inc. Medline Cath Medline 1 [id number] 375433 18147 328255 5 Pack ([id number]) DIAGNOSTIC Cardinal 1 TP4953 117808 11061 404832 30 Multipack Health 5Fr catheter set (ZF6770) ACIST Hand Acist 1 39717 216865 633796 416622 5 Control Medical (46480) Systems Inc ACIST Acist 1 64085 329511 601449 595166 5 Manifold Medical (64115) Systems Inc Tegaderm 4 x 3M 1 1626W 864046 810802 052978 5 4 (1626W) DIAGNOSTIC St Dionte 1 065563 850513 729585 627377 30 WIRE .035 260cm J wire (663158) SHEATH 6FR Terumo 1 SDI265 279452 532018 844932 40 [place] (MYG404) MULTIPACK Cardinal 1 057502 5 Pigtail 5 Fr Health catheter MULTIPACK Cardinal 1 200170 5 3DRC 5Fr Health catheter MULTIPACK JL Cardinal 1 946019 5 4.0 5Fr Health catheter INFLATOR Merit 1 DO8550 716270 257418 662829 15 [facility] Medical BasixCompak (NK0291) CHOICE PT [place] 1 [id number] 017307 742264 169765 5 Extra Scientific Support 182cm wire ([id number]) GUIDE 6FR Cardinal 1 [id number] 831668 764543 160855 10 XBLAD 3.5 Health catheter (60037108) [place] 1 68455A 917085 670655 224285 8 [place] Eag[place]e IVUS Catheter (36336V) INTEGRITY RX Medtronic 1 [id number] 279620 031652 598769 5 [id number] 3.5 x 26 stent ([id number]) GUIDE 6FR AR Medtronic 1 [id number] 358957 75470 681790 1 1.0 catheter (BQ6XK34) INTEGRITY RX Medtronic 1 [id number] 407010 275762 374679 5 [id number] 3.0 x 30 stent ([id number]) EXOSEAL 6Fr Cardinal 1 EX600 240865 455350 281677 10 (EX600) Health Signature Audit [place] Stage Time Signature Unsigned Intra-Procedure 02/24/2019 Tyron Sahu 11:37:00 AM RT(R) Signatures Monitor : Tyron Sahu RT Signature : Date : Time : [facility] [address] [place] [address]
--- NOTE | ~2019-02-23 | DS ---
PATIENT:GISSELLE HENRIQUEZ :61 MEDICAL RECORD: [id number] DISCHARGE SUMMARY ADMISSION DATE: 02/24/19 DISCHARGE DATE: 02/24/19 DISCHARGE DIAGNOSES: 1. Unstable angina. 2. Coronary artery disease. 3. Percutaneous transluminal coronary angioplasty stent of left circumflex and left anterior descending this admission. HOSPITAL COURSE: Mr. Henriquez presents with unstable anginal symptomatology, found to have significant disease of the left circumflex and RCA, underwent successful PTCA stent of both territories, was discharged home with the addition of aspirin and Plavix to his medical regimen. He will follow up with [facility] in 1 month. TRANSINT:[id number] Voice Confirmation ID: [id number] DOCUMENT ID: [id number] JEANINE TITUS MD CC: [id number] DICTATION DATE: 02/24/19 113 CASTING AND PASTING SUPERVISOR: 02/25/19 0240 DIS IN 02/24/19 [place] [id number] [place] [id number]
--- NOTE | ~2019-02-23 | OP ---
PATIENT NAME: GISSELLE BAKER MEDICAL RECORD: [id number] :61 LOCATION:[facility] ADMISSION DATE:02/24/19 SURGEON: JEANINE TITUS MD DATE OF OPERATION: 02/24/2019 PROCEDURES: 1. PTCA and stent of the RCA. 2. PTCA and stent of left circumflex. 3. Intravascular ultrasound. 4. Left heart catheterization. 5. Selective coronary angiography. 6. Left ventriculogram. INDICATIONS: Angina and coronary artery disease. PROCEDURE IN DETAIL: After informed consent was obtained and after a detailed explanation of the risks, benefits as well as alternative therapies, the patient elected to proceed with angiogram and angioplasty. The right femoral area was prepped and draped in normal sterile fashion. Right femoral artery was cannulated via modified Seldinger technique with placement of 6-[place] sheath. All catheters exchanged through this sheath. FINDINGS: The left ventriculogram was performed in a standard 30-degree REYES view, reveals good cardiac wall motion throughout all segments. Overall ejection fraction estimated 60%. SELECTIVE CORONARY ANGIOGRAPHY: 1. Left main is with no significant angiographic disease. 2. Left anterior descending has a high-grade stenosis in the proximal vessel. 3. CARPENTER to the LAD is widely patent. Distal LAD is widely patent. 4. Left circumflex has previously placed stents. Intravascular ultrasound reveals there is 80% in-stent restenosis. 5. Right coronary has 80% stenosis throughout the proximal aspect. PTCA AND STENT OF THE RCA: The stent used was a 3.0 x 30-mm Integrity. Result was 0% residual stenosis. PTCA AND STENT OF THE LEFT CIRCUMFLEX: The stent used was a 3.5 x 26-mm Integrity. Result was 0% residual stenosis. OVERALL IMPRESSION: Successful PTCA and stent of the left circumflex and RCA, both going from 80% initial stenosis to 0% residual. TRANSINT:[id number] Voice Confirmation ID: [id number] DOCUMENT ID: [id number] JEANINE TITUS MD CC: [id number] DICTATION DATE: 02/24/19 1139 PATHOLOGIST: 02/24/19 1351 ADM IN [place] [id number] [place] [address]
[~2019-02-23 22:26] MED LIST: BAYER CHEWABLE81 MG PO; PLAVIX75 MG PO
[2019-02-23 23:07] LABS: BASOPHILS 0.3 % (0-2); HEMATOCRIT 42.6 % (42.0-54.0); HEMOGLOBIN 15.3 g/dL (13.5-17.5); IMMATURE GRANULOCYTES 0.2 % (0-5); LYMPHOCYTES 37.4 % (15-50); MCH 32.2 pg (26.0-34.0); MCHC 35.9 g/dL (31.0-37.0); MCV 89.7 fL (80.0-100.0); MEAN PLATELET VOLUME 10.2 fL (7.4-10.4); MONOCYTES 8.2 % (2-11); NEUTROPHILS 50.9 % (40-80); RBC 4.75 10x6/uL (4.20-6.10); WBC 10.5 10x3/uL (4.8-10.8)
[2019-02-23 23:18] LABS: PLATELET COUNT 323 10x3/uL (130-400)
[2019-02-23 23:26] LABS: APTT 31.2 SECONDS (22.8-39.4); INR 0.94 (0.85-1.17); PROTIME 12.1 SECONDS (11.6-15.0)
[2019-02-23 23:36] LABS: ALBUMIN 3.2 g/dL (3.4-5.0); ALKALINE PHOSPHATASE 116 U/L (46-116); ALT (SGPT) 31 U/L (10-68); CALC OSMOLALITY 278 mosm/kg (275-300); CARBON DIOXIDE 28.1 mmol/L (21.0-32.0); CHLORIDE - SERUM 103 mmol/L (98-107); POTASSIUM - SERUM 3.7 mmol/L (3.5-5.1); PROTEIN - SERUM 7.8 g/dL (6.4-8.2); SODIUM 137 mmol/L (136-145); UREA NITROGEN 18 mg/dL (7-18); eGFR NON AFRICAN AMERICAN 82 mL/min (90-120)
[2019-02-23 23:38] LABS: GLUCOSE 152 mg/dL (74-106)
[2019-02-23 23:46] LABS: CREATINE KINASE 40 UL (21-232); MAGNESIUM - SERUM 2.1 mg/dL (1.8-2.4)
[2019-02-23 23:49] LABS: CKMB 0.3 U/L (0.0-3.6); TROPONIN-I < 0.017 ng/mL (0.000-0.060)
[2019-02-24] VITALS (7 sets, daily range): BP systolic 82–131; BP diastolic 61–78; Ht 172.7 cm; Wt 72.1 kg
[2019-02-24 06:44] LABS: CKMB 0.8 U/L (0.0-3.6); CREATINE KINASE 43 UL (21-232); TROPONIN-I < 0.017 ng/mL (0.000-0.060)
[2019-02-24 10:57] LABS: CKMB 0.8 U/L (0.0-3.6); CREATINE KINASE 47 UL (21-232); TROPONIN-I < 0.017 ng/mL (0.000-0.060)
== END 2019-02-24 15:30 | disposition home or self-care (01) ==
LOC: D.ER 22:26 → D.ICU 02-24 01:34 → D.EDHOLD 02-24 01:34 → OBSVTIME 02-24 01:34 → D.CVICU 02-24 03:30 → D.ICU 02-24 03:55 → D.CLR 02-24 11:43
PROVIDERS: Family Medicine; ADMIT Internal Medicine Interventional Cardiology; ATTEND Internal Medicine Interventional Cardiology
DX: I25.110 Atherosclerotic heart disease of native coronary artery with unstable angina pectoris (principal)